=== PATIENT | male | born 1980 | race African-American/Black ===

== ENCOUNTER 2020-07-12 16:37 | Emergency (ER) | payer SELFPAY ==
[~2020-07-12] VITALS: Ht 175.3 cm; Wt 119.4 kg
[2020-07-12 16:38] VITALS: BP 133/85
[2020-07-12] MEDS ORDERED: unknown antibiotic PO (16:46)
[2020-07-12 18:21] LABS: BASO % 0.8 % (0.0-1.0); EOS # 0.4 10^3/uL (0.0-0.5); EOS % 6.7 % (0.0-3.0); HEMATOCRIT 42.3 % (42.0-52.0); HEMOGLOBIN 13.4 g/dl (13.5-17.5); LYMPH # 2.4 10^3/uL (1.5-5.0); LYMPH % 45.7 % (24.0-44.0); MEAN CORPUSCULAR HEMOGLOBIN 27.6 pg (27.0-33.0); MEAN CORPUSCULAR HGB CONC 31.7 g/dl (32.0-36.5); MONO # 0.6 10^3/uL (0.0-0.8); MONO % 11.4 % (0.0-5.0); NEUTROPHILS # 1.8 10^3/uL (1.5-8.5); PLATELET COUNT, AUTOMATED 292 10^3/uL (150-450); RED BLOOD COUNT 4.86 10^6/uL (4.30-6.10); WHITE BLOOD COUNT 5.3 10^3/uL (4.0-10.0)
[2020-07-12 18:52] LABS: ALBUMIN 3.6 GM/DL (3.2-5.2); ALT/SGPT 45 U/L (12-78); BILIRUBIN,DIRECT < 0.1 MG/DL (0.0-0.2); BILIRUBIN,TOTAL 0.2 MG/DL (0.2-1.0); BLOOD UREA NITROGEN 13 MG/DL (7-18); CALCIUM LEVEL 9.3 MG/DL (8.5-10.1); CARBON DIOXIDE LEVEL 29 MEQ/L (21-32); CHLORIDE LEVEL 109 MEQ/L (98-107); CREATININE FOR GFR 1.07 MG/DL (0.70-1.30); GLOMERULAR FILTRATION RATE > 60.0 (>60); GLUCOSE, FASTING 81 MG/DL (70-100); LIPASE 67 U/L (73-393); POTASSIUM SERUM 4.1 MEQ/L (3.5-5.1); SODIUM LEVEL 140 MEQ/L (136-145); TOTAL PROTEIN 7.1 GM/DL (6.4-8.2)
[2020-07-12] MEDS ORDERED: KETOROLAC 30 MG/ML 1ML VIAL IV ONE (20:00)
[2020-07-12] MEDS ORDERED: NS 1,000 ML IV ONE (20:00)
--- NOTE | 2020-07-12 21:09 | REPVR ---
PROCEDURE INFORMATION: Exam: CT Abdomen And Pelvis Without Contrast Exam date and time: 07/12/2020 7:57 PM Age: 40 years old Clinical indication: Abdominal pain; Flank; Right; Additional info: Right flank pain, ureteral stent eval TECHNIQUE: Imaging protocol: Computed tomography of the abdomen and pelvis without contrast. Radiation optimization: All CT scans at this facility use at least one of these dose optimization techniques: automated exposure control; mA and/or kV adjustment per patient size (includes targeted exams where dose is matched to clinical indication); or iterative reconstruction. COMPARISON: No relevant prior studies available. FINDINGS: Lungs: The lung bases are clear. Heart: The heart is normal in size and there is no evidence pericardial fluid Liver: Normal appearing liver. Gallbladder and bile ducts: Normal gallbladder. Normal common bile duct. Pancreas: Normal appearing pancreas. Spleen: Normal spleen. Adrenals: Normal adrenal glands. Kidneys and ureters: There is a stent in the right ureter. The proximal end of the stent is coiled in the right collecting system and there may be a small calcified stone abutting the stent at the proximal right ureter. The distal end of the stent is coiled in the urinary bladder. There is a 9 mm calcified stone lower pole of the left kidney/nonobstructive. There is no evidence of a stone in the path of the left ureter. Stomach and bowel: Unremarkable. No obstruction. No mucosal thickening. Appendix: Cecum is at the right pelvis and the appendix appears within the range of normal. Intraperitoneal space: There is no evidence of pneumoperitoneum. Vasculature: The aorta is normal in size. There is calcification consistent with atherosclerotic changes. Lymph nodes: Unremarkable. No enlarged lymph nodes. Urinary bladder: Normal appearing urinary bladder. Reproductive: Normal size prostate. Bones/joints: There is moderate broad-based disc protrusion L4-L5. There is moderate broad-based disc protrusion L5-S1 with very severe bilateral L5 neural foraminal narrowing secondary to facet hypertrophy and osteophyte formation. IMPRESSION: 1. The right-sided ureteral stent is in good position the right ureter. There could be a tiny fragment of stone at the proximal right ureter. 2. 9 mm nonobstructing stone lower pole left kidney. 3. Severe bilateral L5 neural foraminal narrowing secondary to facet hypertrophy and osteophyte formation. Electronically signed by: Vasu Jordan On 07/12/2020 21:09:01 PM
[2020-07-12] MEDS ORDERED: KETO10TAB PO (21:12)
== END 2020-07-12 21:37 | disposition home or self-care (01) ==
LOC: M ED 16:37
DX: N23 Unspecified renal colic (principal); Z96.0 Presence of urogenital implants; M51.26 Other intervertebral disc displacement, lumbar region
CPT/HCPCS: 74176; 80048; 80076; 81001; 83690; 85025; 87086; 96361; 96374; 99284; J1885

== ENCOUNTER 2022-08-24 13:18 | Emergency (ER) | payer SELFPAY ==
[~2022-08-24] VITALS: Ht 175.3 cm; Wt 134.0 kg
[~2022-08-24 13:18] MED LIST: KETO10TAB PO; unknown antibiotic PO
[2022-08-24] MEDS ORDERED: KETOROLAC 60MG 2ML VIAL IM ONE (16:35)
[2022-08-24] MEDS ORDERED: LIDOCAINE 4% CREAM 5GM (LMX4) TOP ONE (16:35)
[2022-08-24 16:58] LABS: BASO % 0.7 % (0.0-1.0); EOS # 0.2 10^3/uL (0.0-0.5); EOS % 4.4 % (0.0-3.0); HEMATOCRIT 44.2 % (42.0-52.0); LYMPH # 2.3 10^3/uL (1.5-5.0); LYMPH % 40.8 % (24.0-44.0); MEAN CORPUSCULAR HEMOGLOBIN 26.9 pg (27.0-33.0); MEAN CORPUSCULAR HGB CONC 31.7 g/dl (32.0-36.5); MONO # 0.5 10^3/uL (0.0-0.8); MONO % 8.9 % (2.0-8.0); NEUTROPHILS # 2.5 10^3/uL (1.5-8.5); NEUTROPHILS % 44.8 % (36.0-66.0); PLATELET COUNT, AUTOMATED 362 10^3/uL (150-450); WHITE BLOOD COUNT 5.5 10^3/uL (4.0-10.0)
[2022-08-24 17:28] LABS: ERYTHROCYTE SEDIMENTATION RATE 17 mm/hr (0-15)
[2022-08-24 17:50] LABS: C REACTIVE PROTEIN QUANTITATIV 1.23 MG/DL (0.00-0.30); URIC ACID 9.9 MG/DL (3.5-7.2)
[2022-08-24] MEDS ORDERED: COLCHICINE 0.6 MG TABLET PO ONE ×2 (18:20)
[2022-08-24] MEDS ORDERED: INDO-16 PO (18:21)
[2022-08-24] MEDS ORDERED: ANEC4CRE3 TOP (18:23)
[2022-08-24 18:38] VITALS: BP 144/102
== END 2022-08-24 18:40 | disposition home or self-care (01) ==
LOC: M ED 13:18
DX: M10.072 Idiopathic gout, left ankle and foot (principal); M25.572 Pain in left ankle and joints of left foot; M77.32 Calcaneal spur, left foot; F17.200 Nicotine dependence, unspecified, uncomplicated
CPT/HCPCS: 73610; 80047; 84550; 85025; 85652; 86140; 93971; 96372; 99283; J1885